=== PATIENT | female | born 1995 | race Caucasian/White ===

== ENCOUNTER 2018-11-17 10:03 | Emergency (ER) | payer OTHER ==
[~2018-11-17] VITALS: Ht 165.1 cm; Wt 68.2 kg
[2018-11-17] MEDS ORDERED: METOCLOPRAMIDE INJ 10MG/2ML VIAL (J2765) IV ONE (10:45)
[2018-11-17] MEDS ORDERED: KETOROLAC 30 MG/ML VIAL (J1885) IV ONE (10:45)
[2018-11-17] MEDS ORDERED: diphenhydrAMINE INJ 50MG/ML VIAL (J1200) IV ONE (10:45)
--- NOTE | 2018-11-17 11:00 | REP ---
Head CT without contrast: History: Headache after a fall. Comparison study: No comparison study. CT findings: Bone window settings demonstrate an intact bony calvarium. There is no evidence of skull fracture or incidental bony calvarial lesion. The visualized paranasal sinuses appear clear. No intraorbital abnormality is seen. On soft tissue window setting images; the lateral, third, and fourth ventricles are normal in size and position. Rosado-white differentiation pattern is normal above and below the tentorium. There are is no evidence of intracranial hemorrhage. No mass, edema, infarction, or midline shift is seen. No extra-axial fluid collection is appreciated. Impression: Negative noncontrast head CT. Electronically Signed by Rick Botello MD 11/17/2018 10:52 A
[2018-11-17] MEDS ORDERED: BUPIVACAINE HCL 0.5% 10 ML VIAL SC ONE (12:00)
[2018-11-17] MEDS ORDERED: IBUP80TA PO (12:37)
[2018-11-17 12:45] VITALS: BP 99/55
== END 2018-11-17 12:48 | disposition home or self-care (01) ==
LOC: M ED 10:03
DX: R51 Headache (principal); M54.2 Cervicalgia
CPT/HCPCS: 64405; 70450; 96374; 96375; 99284; J1200; J1885; J2765

== ENCOUNTER 2018-12-02 07:16 | Emergency (ER) | payer OTHER ==
[~2018-12-02] VITALS: Ht 165.1 cm; Wt 65.9 kg
[~2018-12-02 07:16] MED LIST: IBUP80TA PO
[2018-12-02] MEDS ORDERED: NS 1,000 ML IV ONE (08:00)
[2018-12-02] MEDS ORDERED: KETOROLAC 30 MG/ML VIAL (J1885) IV ONE (08:00)
[2018-12-02] MEDS ORDERED: ONDANSETRON 4MG/2ML VIAL (J2405) IV ONE (08:00)
[2018-12-02] MEDS ORDERED: ONDA4TAB6 PO (08:58)
[2018-12-02] MEDS ORDERED: KETO10TAB PO (08:58)
[2018-12-02 09:22] VITALS: BP 119/69
== END 2018-12-02 09:29 | disposition home or self-care (01) ==
LOC: M ED 07:16
DX: G43.909 Migraine, unspecified, not intractable, without status migrainosus (principal); F17.200 Nicotine dependence, unspecified, uncomplicated
CPT/HCPCS: 96374; 96375; 99284; J1885; J2405

== ENCOUNTER 2019-10-12 07:43 | Emergency (ER) | payer OTHER ==
[~2019-10-12] VITALS: Ht 167.6 cm; Wt 78.7 kg
[~2019-10-12 07:43] MED LIST changes: +KETO10TAB PO; +ONDA4TAB6 PO
[2019-10-12 07:44] VITALS: BP 138/80
[2019-10-12] MEDS ORDERED: ADVIL (07:52)
--- NOTE | 2019-10-12 08:47 | REP ---
Second digit right foot four views : There is no fracture or dislocation. Mineralization and joint spaces are normal. There are no calcifications or foreign bodies. Impression: Negative second digit right foot . Electronically Signed by Jeremy Stephenson MD 10/12/2019 08:38 A
[2019-10-12] MEDS ORDERED: KEFL500C17 PO (09:23)
[2019-10-12] MEDS ORDERED: CEPHALEXIN 500 MG CAP PO ONE (09:30)
== END 2019-10-12 09:39 | disposition home or self-care (01) ==
LOC: M ED 07:43
DX: L03.031 Cellulitis of right toe (principal)

== ENCOUNTER 2019-12-01 18:14 | Emergency (ER) | payer OTHER ==
[~2019-12-01] VITALS: Ht 167.6 cm; Wt 80.7 kg
[~2019-12-01 18:14] MED LIST changes: +ADVIL; +KEFL500C17 PO
[2019-12-01] MEDS ORDERED: AUGMENTIN 875 MG TAB PO ONE (19:00)
--- NOTE | 2019-12-01 19:48 | REP ---
HISTORY: Pain after trauma. FINDINGS: The joint spaces are symmetric and relatively well maintained. There is no evidence of acute fracture or destructive osseous lesion. IMPRESSION: Negative. Electronically Signed by Calin Ortiz DO 12/02/2019 01:18 P
[2019-12-01] MEDS ORDERED: AUGM875T28 PO (19:54)
[2019-12-01 20:01] VITALS: BP 131/69
== END 2019-12-01 20:03 | disposition home or self-care (01) ==
LOC: M ED 18:14
DX: S61.431A Puncture wound without foreign body of right hand, initial encounter (principal); W54.0XXA Bitten by dog, initial encounter; Y92.099 Unspecified place in other non-institutional residence as the place of occurrence of the external cause; Y93.9 Activity, unspecified; Y99.9 Unspecified external cause status; F17.200 Nicotine dependence, unspecified, uncomplicated

== ENCOUNTER 2020-04-03 16:43 | Inpatient (IN) | payer OTHER ==
[~2020-04-03] VITALS: Ht 167.6 cm; Wt 80.2 kg
[~2020-04-03 16:43] MED LIST changes: +AUGM875T28 PO
[2020-04-03] MEDS ORDERED: BOOSTRIX/ADACEL VACCINE (DIPHTH/PERTUSS/ACELL/TETANUS) 0.5ML SYR IM ONE (17:00)
[2020-04-03 17:32] LABS: HEMATOCRIT 42.6 % (36.0-47.0); HEMOGLOBIN 14.5 g/dl (12.0-15.5); MEAN CORPUSCULAR HEMOGLOBIN 30.9 pg (27.0-33.0); MEAN CORPUSCULAR VOLUME 90.8 fl (80.0-96.0); PLATELET COUNT, AUTOMATED 287 10^3/uL (150-450); RED BLOOD COUNT 4.69 10^6/uL (4.00-5.40); WHITE BLOOD COUNT 12.3 10^3/uL (4.0-10.0)
[2020-04-03 17:50] LABS: AMPHETAMINES LEVEL URINE NEGATIVE (NEGATIVE); BARBITURATES URINE NEGATIVE (NEGATIVE); BENZODIAZEPINES URINE NEGATIVE (NEGATIVE); CANNABINOIDS URINE NEGATIVE (NEGATIVE); COCAINE METABOLITE URINE NEGATIVE (NEGATIVE); METHADONE URINE NEGATIVE (NEGATIVE); OPIATES URINE NEGATIVE (NEGATIVE); PHENCYCLIDINE URINE NEGATIVE (NEGATIVE)
[2020-04-03 17:53] LABS: HCG, SERUM QUALITATIVE NEGATIVE (NEGATIVE)
[2020-04-03 18:06] LABS: ACETAMINOPHEN LEVEL < 2.0 UG/ML (10.0-30.0); ALBUMIN 4.3 GM/DL (3.2-5.2); ALT/SGPT 18 U/L (12-78); BILIRUBIN,DIRECT 0.1 MG/DL (0.0-0.2); BILIRUBIN,TOTAL 0.6 MG/DL (0.2-1.0); BLOOD UREA NITROGEN 3 MG/DL (7-18); CALCIUM LEVEL 9.1 MG/DL (8.5-10.1); CARBON DIOXIDE LEVEL 21 MEQ/L (21-32); CHLORIDE LEVEL 111 MEQ/L (98-107); CREATININE FOR GFR 0.81 MG/DL (0.55-1.30); ETHYL ALCOHOL (ETHANOL) 0.061 % (0.000-0.010); GLOMERULAR FILTRATION RATE > 60.0 (>60); GLUCOSE, FASTING 75 MG/DL (70-100); POTASSIUM SERUM 3.7 MEQ/L (3.5-5.1); SALICYLATE LEVEL < 1.7 MG/DL (5.0-30.0); SODIUM LEVEL 140 MEQ/L (136-145); TOTAL PROTEIN 7.4 GM/DL (6.4-8.2)
[2020-04-04] MEDS: NICOTINE 21MG/24HR 1 EA TRANSDERMAL TD SCH (09:00)
[2020-04-04] MEDS ORDERED: OLANZapine ORAL DISINTEGRATING TAB 5MG PO PRN (15:15)
[2020-04-04] MEDS ORDERED: MOM 30ML SUSPENSION UDC PO PRN (15:15)
[2020-04-04] MEDS ORDERED: ACETAMINOPHEN TAB 650MG DOSE (2X325MG) PO PRN (15:15)
[2020-04-04] MEDS ORDERED: MAALOX 30 ML SUSP *UDC PO PRN (15:15)
[2020-04-04] MEDS ORDERED: traZODone 50 MG TAB PO PRN (15:15)
[2020-04-04 17:00] VITALS: BP 111/67
[2020-04-05 06:31] VITALS: BP 118/58
--- NOTE | 2020-04-05 07:54 | MHHPEPDOC ---
[facility] History & Physical History and Physical DATE OF ADMISSION: Apr 04, 2020 at 15:15 HPI: Melo presents today for concerns regarding her self-harming behavior. Patient notes that her mood has been down, and she does not feel motivation to perform normal activities. She denies taking any medication for her mood level. She denies experiencing auditory hallucinations or staying up for weeks at a time. She also denies any history of trauma or abuse in the past. Patient states she is not the type to lash out at other people. MEDICAL HISTORY: Patient notes that this is her first experience with self-harm. Patient denies any history of suicide attempts FAMILY HISTORY: Patient denies any family history of mental illnesses. SOCIAL HISTORY - OCCUPATION: Patient states that she works in the . SOCIAL HISTORY - LIVING SITUATION: Patient got into an argument before self-harming behavior occurred. Her home is located in [place], but she has not been there for almost a year. She states that she lived with her Grandma at the age of 17, and she also notes that her mother is not stable. Patient notes that she and her have been for 2 years. Objective Appearance: Well nourished. Appears to be stated age. Well groomed. Behavior: Cooperative with good eye contact. Pleasant. Engaged. Affect: Appropriate to context. Full range. Mood: Euthymic. Generally good. Appropriately reactive. Speech: Spontaneous and Fluid. Normal rate. Normal volume. Motor: No gross motor abnormalities. Cognition: Alert, Attentive, and Oriented to person, place, time. 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 No formal testing. Thought Form: Linear and goal directed. Thought Content: No evidence of delusions. No evidence of aggressive or homicidal ideation. No evidence of suicidal ideation. No thoughts of self harm. Perception: No perceptual abnormalities noted. Judgement: Intact as evidenced by decision making in the recent past. Insight: Good insight into symptoms and treatment options. 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 Treatment priorities are 1 and risk for suicide is 2. Patient will be observed for 48 hours. She will be discharged if no concerning behavior or ideation occurs. Vital Signs Vital Signs Date Time Temp Pulse Resp B/P (MAP) Pulse Ox O2 Delivery O2 Flow Rate FiO2 04/05/20 06:31 97.9 75 12 118/58 (78) Room Air 04/04/20 17:00 98 Medications No Active Prescriptions or Reported Meds Allergies Coded Allergies: No Known Allergies (Unverified , 11/17/18) SERJIO RIVERA DO Apr 05, 2020 07:54
[2020-04-05] MEDS: NICOTINE 21MG/24HR 1 EA TRANSDERMAL TD SCH (09:00)
--- NOTE | 2020-04-05 15:10 | HPEPDOC ---
[facility] Medical History & Physical Date of Admission Apr 04, 2020 Date of Service: Apr 05, 2020 Attending Physician: MAN ALCARAZ MD History and Physical PRIMARY CARE PROVIDER: unknown ATTENDING: Dr. Alcaraz Reason of consultation: Medical comanagement CHIEF COMPLAINT: Self harm HISTORY OF PRESENT ILLNESS: 24 y/o F with no significant PMHx who presents for psych eval given self harm. Pt had used blades to cut her forearms. No active bleeding. No other areas of cutting per pt. No CP/SOB/palpitations. No N/V/Abd pain. No Fevers/chills. PAST MEDICAL HISTORY: None PAST SURGICAL HISTORY: None SOCIAL HISTORY: + tobacco abuse. No alcohol or illict drug use. FAMILY HISTORY: Non contributory ALLERGIES: Please see below. REVIEW OF SYSTEMS: HEENT: Denies sore throat/headache CARDIOVASCULAR: Denies chest pain/palpitations RESPIRATORY: Denies shortness of breath/cough GASTROINTESTINAL: denies nausea/vomiting GENITOURINARY: Denies dysuria/urinary urgency. MUSCULOSKELETAL: Denies myalgias/arthralgias NEUROLOGICAL: Denies any focal weakness HOME MEDICATIONS: Please see below. PHYSICAL EXAMINATION: Vitals: (see below) General: No acute distress, laying comfortably in bed. HEENT: Moist mucous membranes. Neck: No JVD or lymphadenopathy Cardiac: RRR, No murmurs Pulm: Clear to auscultation b/l. No wheezing, rhonchi Abd: NT/ND + BS Ext: No edema or cyanosis B/l forearms with blade cut taylor. No active bleeding. No areas of cellulitis. Distal pulses intact. Cap refill <2sec. LABORATORY DATA: See below. ASSESSMENT/PLAN: 1. Self harm - management per psych 2. B/l arm abrasions from blade cutting. No bleeding. Bacitracin ordered. Keep clean and covered. F/u closely with PCP 3. Tobacco abuse- nicotine patch. DVT Prophy: OOB/Amb Vital Signs Vital Signs Date Time Temp Pulse Resp B/P (MAP) Pulse Ox O2 Delivery O2 Flow Rate FiO2 04/05/20 06:31 97.9 75 12 118/58 (78) Room Air 04/04/20 17:00 98 Home Medications No Active Prescriptions or Reported Meds Allergies Coded Allergies: No Known Allergies (Unverified , 11/17/18) A-FIB/CHADSVASC A-FIB History Current/History of A-Fib/PAF?: No DIMAS TRUJILLO MD Apr 05, 2020 15:10
[2020-04-05 16:13] VITALS: BP 129/73
[2020-04-05] MEDS: BACITRACIN OINTMENT 30GM TUBE TOP SCH (16:33)
[2020-04-06 06:30] VITALS: BP 125/59
[2020-04-06] MEDS: NICOTINE 21MG/24HR 1 EA TRANSDERMAL TD SCH (09:00)
--- NOTE | 2020-04-06 09:13 | MHDSPDOC ---
[facility] Discharge Summary Discharge Summary DATE OF ADMISSION: Apr 04, 2020 at 15:15 DATE OF DISCHARGE: DISCHARGE DIAGNOSES: 1. . 2. . REASON FOR ADMISSION: CONSULTANTS INVOLVED: TREATMENT AND PROGRESS ON THE UNIT : . HOSPITAL COURSE: DISCHARGE ASSESSMENT: MENTAL STATUS EXAMINATION ON DISCHARGE: Patient is a -year old female, who is . Speech is . Language skills are . Thought processes including: . Thought content: . Abstract reasoning, and computation: . Description of associations: . Description of abnormal or psychotic thoughts: . Judgment: . Insight: . Orientation to . Recent and remote memory: . Attention span and concentration: . Language: . Fund of knowledge: . Mood: . Affect: . MEDICATIONS ON DISCHARGE: - for . - for . - for . PLAN/FOLLOWUP ARRANGEMENTS: . The amount of time spent in the coordination of care for this patient was approximately minutes. Vital Signs/I&Os Vital Signs Date Time Temp Pulse Resp B/P (MAP) Pulse Ox O2 Delivery O2 Flow Rate FiO2 04/06/20 06:30 97.1 55 16 125/59 (81) Room Air 04/04/20 17:00 98 Medications Scheduled Nicotine (Nicotine Patch) 21 Mg Patch.td24, 1 PATCH TD DAILY for tobacco for 30 Days, #30 Allergies Coded Allergies: No Known Allergies (Unverified , 11/17/18) SERJIO RIVERA DO Apr 06, 2020 09:13
[2020-04-06] MEDS ORDERED: NICO21PAT TD (09:30)
[2020-04-06] MEDS: BACITRACIN OINTMENT 30GM TUBE TOP SCH (09:34)
== END 2020-04-06 11:00 | disposition home or self-care (01) | DRG 882 ==
LOC: M ED 16:43 → EDBD 16:43 → M ED INP 04-04 15:15 → M PSY 04-04 16:40
PROVIDERS: ADMIT Psychiatry & Neurology Psychiatry; ATTEND Psychiatry & Neurology Addiction Medicine
DX: F43.25 Adjustment disorder with mixed disturbance of emotions and conduct (principal); F17.200 Nicotine dependence, unspecified, uncomplicated

== ENCOUNTER 2020-05-30 10:08 | Emergency (ER) | payer OTHER ==
[~2020-05-30] VITALS: Ht 167.6 cm; Wt 80.9 kg
[~2020-05-30 10:08] MED LIST changes: +NICO21PAT TD
[2020-05-30] MEDS ORDERED: TRAZ-252 PO (10:14)
[2020-05-30 11:01] LABS: BASO % 0.4 % (0.0-1.0); EOS # 0.2 10^3/uL (0.0-0.5); EOS % 2.5 % (0.0-3.0); HEMATOCRIT 46.6 % (36.0-47.0); HEMOGLOBIN 15.4 g/dl (12.0-15.5); LYMPH # 1.7 10^3/uL (1.5-5.0); MEAN CORPUSCULAR HEMOGLOBIN 30.4 pg (27.0-33.0); MEAN CORPUSCULAR VOLUME 92.1 fl (80.0-96.0); MONO # 0.5 10^3/uL (0.0-0.8); MONO % 5.6 % (0.0-5.0); NEUTROPHILS # 6.6 10^3/uL (1.5-8.5); NEUTROPHILS % 72.1 % (36.0-66.0); PLATELET COUNT, AUTOMATED 292 10^3/uL (150-450); RED BLOOD COUNT 5.06 10^6/uL (4.00-5.40); WHITE BLOOD COUNT 9.1 10^3/uL (4.0-10.0)
[2020-05-30] MEDS ORDERED: KETOROLAC 30 MG/ML 1ML VIAL IV ONE (11:30)
[2020-05-30] MEDS ORDERED: NS 1,000 ML IV ONE (11:30)
[2020-05-30] MEDS ORDERED: ONDANSETRON 4MG/2ML VIAL IV ONE (11:30)
[2020-05-30 11:38] LABS: ALBUMIN 4.1 GM/DL (3.2-5.2); ALT/SGPT 18 U/L (12-78); BILIRUBIN,DIRECT 0.1 MG/DL (0.0-0.2); BILIRUBIN,TOTAL 0.7 MG/DL (0.2-1.0); BLOOD UREA NITROGEN 6 MG/DL (7-18); CALCIUM LEVEL 9.4 MG/DL (8.5-10.1); CARBON DIOXIDE LEVEL 25 MEQ/L (21-32); CHLORIDE LEVEL 110 MEQ/L (98-107); CREATININE FOR GFR 0.81 MG/DL (0.55-1.30); GLOMERULAR FILTRATION RATE > 60.0 (>60); GLUCOSE, FASTING 88 MG/DL (70-100); LIPASE 60 U/L (73-393); POTASSIUM SERUM 4.5 MEQ/L (3.5-5.1); SODIUM LEVEL 139 MEQ/L (136-145); TOTAL PROTEIN 7.5 GM/DL (6.4-8.2)
[2020-05-30] MEDS ORDERED: ISOVUE-370 76% 100ML VIAL As Ordered ONE (12:17)
--- NOTE | 2020-05-30 12:59 | REPVR ---
PROCEDURE INFORMATION: Exam: CT Abdomen And Pelvis With Contrast Exam date and time: 05/30/2020 12:32 PM Age: 24 years old Clinical indication: Abdominal pain; Localized; Right lower quadrant (rlq); Additional info: Rlq pain with n/v/d R/O infectious process TECHNIQUE: Imaging protocol: Computed tomography of the abdomen and pelvis with intravenous contrast. Radiation optimization: All CT scans at this facility use at least one of these dose optimization techniques: automated exposure control; mA and/or kV adjustment per patient size (includes targeted exams where dose is matched to clinical indication); or iterative reconstruction. Contrast material: ISOVUE 370; Contrast volume: 100 ml; Contrast route: INTRAVENOUS (IV); COMPARISON: No relevant prior studies available. FINDINGS: Lungs: The visualized portions of the lung bases are normal. Mediastinal space: A small hiatal hernia is present. Liver: There are no focal liver lesions present. Gallbladder and bile ducts: The gallbladder is contracted but otherwise normal. Pancreas: The pancreas is normal. Spleen: The spleen is normal. Adrenals: The adrenal glands are normal. Kidneys and ureters: The kidneys are normal. There is no evidence of hydronephrosis. No calculi are identified. Stomach and bowel: Unremarkable. No obstruction. No mucosal thickening. Appendix: A normal appendix is identified. Intraperitoneal space: Unremarkable. No free air. No significant fluid collection. Vasculature: Unremarkable. No abdominal aortic aneurysm. Lymph nodes: Unremarkable. No enlarged lymph nodes. Bladder: Unremarkable as visualized. Reproductive: Unremarkable as visualized. Bones/joints: Unremarkable. No acute fracture. Soft tissues: Unremarkable. Other findings: No evidence of an acute abdominal abnormality. IMPRESSION: No evidence of an acute abdominal abnormality. Electronically signed by: Alvaro Salamanca On 05/30/2020 12:59:03 PM
[2020-05-30] MEDS ORDERED: PROM25TA12 PO (14:43)
[2020-05-30 15:06] VITALS: BP 127/63
== END 2020-05-30 15:07 | disposition home or self-care (01) ==
LOC: M ED 10:08
DX: R10.9 Unspecified abdominal pain (principal); R11.2 Nausea with vomiting, unspecified; R19.7 Diarrhea, unspecified; F17.200 Nicotine dependence, unspecified, uncomplicated; Z79.899 Other long term (current) drug therapy
CPT/HCPCS: 74177; 80047; 80048; 80076; 81001; 83690; 84702; 85025; 96361; 96374; 96375; 99284; J1885; J2405; Q9967

== ENCOUNTER 2020-09-08 21:41 | Emergency (ER) | payer OTHER ==
[~2020-09-08] VITALS: Ht 167.6 cm; Wt 79.4 kg
[~2020-09-08 21:41] MED LIST changes: +PROM25TA12 PO; +TRAZ-252 PO
[2020-09-08 21:42] VITALS: BP 150/69
[2020-09-08] MEDS ORDERED: IBUP-1114 PO (21:53)
[2020-09-08] MEDS ORDERED: diphenhydrAMINE 50MG/ML VIAL (J1200) IV STA (22:16)
[2020-09-08] MEDS ORDERED: NS 1,000 ML IV ONE (22:30)
[2020-09-08] MEDS ORDERED: KETOROLAC 30 MG/ML 1ML VIAL IV ONE (22:30)
[2020-09-08] MEDS ORDERED: METOCLOPRAMIDE INJ 10MG/2ML VIAL (J2765 PER 1) IV ONE (22:30)
[2020-09-08 23:02] LABS: BASO # 0.1 10^3/uL (0.0-0.2); BASO % 0.5 % (0.0-1.0); EOS # 0.4 10^3/uL (0.0-0.5); EOS % 3.4 % (0.0-3.0); HEMATOCRIT 44.5 % (36.0-47.0); HEMOGLOBIN 14.6 g/dl (12.0-15.5); LYMPH # 3.7 10^3/uL (1.5-5.0); LYMPH % 30.5 % (24.0-44.0); MEAN CORPUSCULAR HEMOGLOBIN 29.2 pg (27.0-33.0); MEAN CORPUSCULAR HGB CONC 32.8 g/dl (32.0-36.5); MONO # 0.8 10^3/uL (0.0-0.8); MONO % 6.7 % (0.0-5.0); NEUTROPHILS % 58.6 % (36.0-66.0); PLATELET COUNT, AUTOMATED 282 10^3/uL (150-450)
[2020-09-08 23:13] LABS: INR 0.97; PARTIAL THROMBOPLASTIN TIME 30.1 SECONDS (24.2-38.5); PROTHROMBIN TIME 13.1 SECONDS (12.5-14.3)
[2020-09-08 23:31] LABS: BLOOD UREA NITROGEN 7 MG/DL (7-18); CALCIUM LEVEL 9.5 MG/DL (8.5-10.1); CARBON DIOXIDE LEVEL 26 MEQ/L (21-32); CHLORIDE LEVEL 106 MEQ/L (98-107); CREATININE FOR GFR 0.86 MG/DL (0.55-1.30); GLOMERULAR FILTRATION RATE > 60.0 (>60); GLUCOSE, FASTING 90 MG/DL (70-100); MAGNESIUM LEVEL 2.2 MG/DL (1.8-2.4); SODIUM LEVEL 138 MEQ/L (136-145)
--- NOTE | 2020-09-08 23:32 | REPVR ---
PROCEDURE INFORMATION: Exam: CT Head Without Contrast Exam date and time: 09/08/2020 10:16 PM Age: 24 years old Clinical indication: Pain; Headache not specified; Additional info: OSMAN with nosebleeds TECHNIQUE: Imaging protocol: Computed tomography of the head without contrast. Axial and coronal reformatted images were created and reviewed. Radiation optimization: All CT scans at this facility use at least one of these dose optimization techniques: automated exposure control; mA and/or kV adjustment per patient size (includes targeted exams where dose is matched to clinical indication); or iterative reconstruction. COMPARISON: CT Head without contrast 11/17/2018 10:37 AM FINDINGS: Brain: No CT evidence of acute intracranial hemorrhage or acute territorial infarction. No significant mass effect or midline shift. Basal cisterns patent. Cerebral ventricles: Normal in size and configuration. Bones/joints: No acute osseous abnormality. Paranasal sinuses: Unremarkable. No fluid levels. Mastoid air cells: Grossly unremarkable. Soft tissues: Grossly unremarkable. IMPRESSION: No CT evidence of acute intracranial pathology. Electronically signed by: Arnoldo Kay On 09/08/2020 23:32:16 PM
[2020-09-08] MEDS ORDERED: REGL10TA6 PO (23:44)
[2020-09-08] MEDS ORDERED: HM S0.65 NARES (23:46)
== END 2020-09-09 00:14 | disposition home or self-care (01) ==
LOC: M ED 21:41
DX: R51.9 Headache, unspecified (principal); Z87.09 Personal history of other diseases of the respiratory system; Z87.891 Personal history of nicotine dependence; Z86.69 Personal history of other diseases of the nervous system and sense organs
CPT/HCPCS: 70450; 80048; 83735; 84702; 85025; 85610; 85730; 96374; 96375; 99283; J1200; J1885; J2765